=== PATIENT | female | born 1980 | race Hispanic/Latino ===

== ENCOUNTER 2017-10-29 23:33 | Emergency (ER) | payer MEDICAID, OTHER ==
[~2017-10-29 23:33] MED LIST: PREN1TAB80 PO
[2017-10-30] MEDS ORDERED: ACETAMINOPHEN-CODEINE 300/30MG TAB ONE (00:11)
[2017-10-30 00:16] LABS: APPEARANCE,URINE Clear (CLEAR); BILIRUBIN,URINE Negative (NEGATIVE); COLOR,URINE Yellow (YELLOW); GLUCOSE, URINE (UA) >=1000 mg/dL (NEGATIVE); KETONES,URINE Negative (NEGATIVE); LEUKOCYTE ESTERASE ,URINE Negative (NEGATIVE); NITRATE,URINE Negative (NEGATIVE); OCCULT BLOOD,URINE Negative (NEGATIVE); PH,URINE 6.5 (5.0-8.0); PROTEIN,URINE Negative (NEGATIVE)
[2017-10-30 00:19] LABS: HCG,QUAL RESULT NEGATIVE (NEGATIVE)
[2017-10-30 00:25] LABS: CREATININE 0.8 mg/dL (0.5-1.5); POTASSIUM 3.8 mmol/L (3.5-5.1)
[2017-10-30 00:29] LABS: BACTERIA,URINE Rare /HPF (None Seen); RBC,URINE None Seen /HPF (0-1); SQUAMOUS EPITHELIAL CELL,UR 0-2 /HPF (0-2); WBC,URINE None Seen /HPF (0-1)
[2017-10-30 00:30] LABS: ALBUMIN 3.3 g/dL (3.5-5.0); BILIRUBIN,TOTAL 0.1 mg/dL (0.2-1.0); TOTAL PROTEIN, SERUM 7.4 g/dL (6.0-8.3)
[2017-10-30 00:38] LABS: BASOPHILS % (AUTO) 1.2 % (0.0-5.0); HEMATOCRIT 30.9 % (36-48); LYMPHOCYTES % (AUTO) 25.2 % (21.0-51.0); MEAN CORPUSCULAR HGB CONC 32.5 g/dL (32.0-36.0); MEAN CORPUSCULAR VOLUME 67.5 fL (79-99); MONOCYTES % (AUTO) 6.6 % (3.0-13.0); PLATELET COUNT (AUTO) 255 K/uL (130-400); RED BLOOD CELL COUNT(AUTO) 4.59 MIL/uL (4.00-5.50); WHITE BLOOD COUNT (AUTO) 7.8 K/uL (4.8-10.8)
[2017-10-30] MEDS ORDERED: IOPAMIDOL-370 75 ML VIAL IV ONE (03:08)
== END 2017-10-30 05:42 | disposition home or self-care (01) ==
LOC: EDH 23:33
DX: R06.00 Dyspnea, unspecified (principal); K02.9 Dental caries, unspecified; Z98.890 Other specified postprocedural states
CPT/HCPCS: 36415; 71045; 80053; 81001; 81025; 83690; 84484 ×2; 85025; 85378; 93005; 99285; Q9967

== ENCOUNTER 2018-08-28 13:36 | Emergency (ER) | payer OTHER ==
[2018-08-28 15:05] LABS: BASOPHILS % (AUTO) 1.1 % (0.0-5.0); EOSINOPHILS % (AUTO) 1.9 % (0.0-8.0); HEMATOCRIT 36.6 % (36-48); MEAN CORPUSCULAR HEMOGLOBIN 25.8 pg (27.0-33.0); MEAN CORPUSCULAR HGB CONC 34.2 g/dL (32.0-36.0); MEAN CORPUSCULAR VOLUME 75.5 fL (79-99); MONOCYTES % (AUTO) 5.6 % (3.0-13.0); NEUTROPHILS % (AUTO) 66.4 % (40.0-77.0); NUCLEATED RED BLOOD CELLS 0.1 % (0.0-0.19); PLATELET COUNT (AUTO) 267 K/uL (130-400); RED BLOOD CELL COUNT(AUTO) 4.85 MIL/uL (4.00-5.50); WHITE BLOOD COUNT (AUTO) 5.8 K/uL (4.8-10.8)
[2018-08-28 15:13] LABS: CREATININE 0.6 mg/dL (0.5-1.5); POTASSIUM 3.9 mmol/L (3.5-5.1)
[2018-08-28] MEDS ORDERED: IOHEXOL 350 MG/ML 100ML INFUS..BTL IV ONE (16:45)
[2018-08-28] MEDS ORDERED: KETOROLAC TROMETHAMINE 30MG/ML ONE ×2 (18:06→18:33)
== END 2018-08-28 18:45 | disposition home or self-care (01) ==
LOC: EDH 13:36
DX: K80.20 Calculus of gallbladder without cholecystitis without obstruction (principal); R07.89 Other chest pain; Z98.51 Tubal ligation status; Z98.890 Other specified postprocedural states
CPT/HCPCS: 36415; 71046; 71275; 80048; 84484; 85025; 85378; 93005; 96374; 99284; J1885 ×2; Q9967

== ENCOUNTER 2023-12-01 17:34 | Emergency (ER) | payer OTHER ==
[~2023-12-01] VITALS: Ht 152.4 cm; Wt 81.6 kg
[2023-12-01] MEDS: ACETAMINOPHEN 500 MG TABLET PO ONE (19:19)
[2023-12-01 20:17] VITALS: BP 131/76; PULSE 87; RESP 16; O2SAT 99
== END 2023-12-01 21:02 | disposition home or self-care (01) ==
LOC: EDH 17:34
DX: M70.52 Other bursitis of knee, left knee (principal); M79.89 Other specified soft tissue disorders; Z98.890 Other specified postprocedural states; Y93.89 Activity, other specified
CPT/HCPCS: 73552; 73564; 93971